=== PATIENT | female | born 1970 | race Caucasian/White ===

== ENCOUNTER 2022-11-12 09:23 | Outpatient (CLI) | payer OTHER, SELFPAY ==
[2022-11-12 12:03] LABS: Cholesterol* 243 mg/dL (90-199); Glucose* 83 mg/dL (60-115)
[2022-11-12 12:04] LABS: HDL Cholesterol* 95 mg/dL (>=50); LDL Cholesterol Calculated 138 mg/dL (<100); Triglycerides* 48 mg/dL (40-149)
== END 2022-11-12 09:24 | disposition home or self-care (01) ==
PROVIDERS: PCP Physician Assistant; Visit Provider Registered Nurse
DX: Z13.6 Encounter for screening for cardiovascular disorders (principal); Z13.1 Encounter for screening for diabetes mellitus
CPT/HCPCS: 80061; 82947

== ENCOUNTER 2024-03-09 20:25 | Outpatient (CLI) | payer OTHER, SELFPAY ==
--- NOTE | 2024-03-09 20:30 | MR_ITS ---
[address] [address] Phone:?[phone] Fax:?[phone] Referring Physician Information: Ethan Mota M.D. [address] [facility] [address] Phone:?[phone] Fax:?[phone] Patient:Rosemary Joseph D.O.B:?1970 Sex:?Female Phone:?[phone] [facility] MRN:?[id number] Exam Date:?03/09/2024 EXAM: MRI OF THE LEFT KNEE CLINICAL INFORMATION: The patient is a 53-year-old with left knee pain. Evaluate for medial meniscal tear. Evaluate for stress injury. PRIOR SURGERY: None reported. COMPARISON STUDIES: Comparison is made to prior radiographs dated 03/06/2024. TECHNICAL INFORMATION: Imaging was performed on a high-field, 1.5 Jacquie MR scanner. Axial proton-density and fat-suppressed T2 imaging of the left knee was performed in addition to sagittal proton-density and fat-suppressed proton- density imaging. Coronal proton-density and coronal STIR imaging was also produced. FINDINGS: Articular/Extraarticular collections: Effusion: Mild to moderate. Popliteal cyst: Small, seen on sagittal series 6 image 8. Loose bodies: No well-defined intra-articular loose bodies are present. Subcutaneous and extraarticular soft tissues: Nonspecific subcutaneous soft tissue edema and/or hemorrhage can be seen along the anterior and medial aspects of the left knee. Osseous structures: Moderate marrow edema can be seen involving the central and posterior aspects of the medial femoral condyle with an area of subcortical low signal intensity along the posterior weightbearing surfaces seen on sagittal series 6 image 9 and on coronal series 8 image 20. The low signal intensity along the articular surfaces measures approximately 12 mm in anteroposterior dimension and 11 mm in mediolateral dimension. The findings are in keeping with a subcortical fracture. The findings are in keeping with a traumatic or stress injury of the medial femoral condyle. No other bony abnormalities about the knee are seen. Ligamentous structures: ACL: Intact and normal in appearance. PCL: Intact and normal in appearance. MCL: Intact and normal in appearance. LCL: Intact and normal in appearance. Posterolateral corner: Intact and normal in appearance. Posteromedial corner: No posteromedial corner soft tissue injury. Semimembranosus and pes anserine tendons demonstrate no tendinopathy or associated bursitis. Extensor mechanism/Patellar retinacular structures: Patellar tendon: Intact, without tendinopathy. Quadriceps tendon: Intact, without tendinopathy. Retinacula: The medial and lateral retinacula are intact. The medial patellofemoral ligament is intact. Medial compartment: Medial meniscus: Degeneration and fraying of the posterior horn of the medial meniscus can be seen without definite areas of well-defined tearing. The middle and anterior portions of the medial meniscus appear intact. No parameniscal cyst formation is identified. Medial femoral condyle: No chondromalacia, chondral defect, or osteochondral abnormality. Medial tibial plateau: No chondromalacia, chondral defect, or osteochondral abnormality. Lateral compartment: Lateral meniscus: No evidence for lateral meniscal tearing is present. No evidence for parameniscal cyst formation can be seen. Lateral femoral condyle: No chondromalacia, chondral defect, or osteochondral abnormality. Lateral tibial plateau: No chondromalacia, chondral defect, or osteochondral abnormality. Patellofemoral compartment: Patella: Grade II to III chondromalacia can be seen involving the patellar apex and medial patellar facet on axial series 3 image 10, measuring 21 mm in mediolateral dimension. Additional grade II chondromalacia of the lateral patellar facet can be seen. Trochlea: No chondromalacia, chondral defect, or osteochondral abnormality. Neurovascular: No definite neurovascular abnormalities are seen. CONCLUSION: 1. Traumatic versus stress injury of the medial femoral condyle with marrow edema and subcortical fracture. 2. Degeneration of the medial meniscus without definite areas of well-defined medial or lateral meniscal tearing. 3. Chondromalacia of the patella. 4. The cruciate and collateral ligaments appear intact. 5. Mild to moderate knee joint effusion and small popliteal cyst. [facility] Electronically signed on 03/10/2024 8:40:00 AM by Ramesh Tripp M.D.
== END 2024-03-09 20:26 | disposition home or self-care (01) ==
PROVIDERS: Visit Provider Orthopaedic Surgery
DX: M25.562 Pain in left knee (principal); M22.42 Chondromalacia patellae, left knee; M25.462 Effusion, left knee; M71.22 Synovial cyst of popliteal space [Baker], left knee
CPT/HCPCS: 73721

== ENCOUNTER 2024-06-02 08:15 | Outpatient (RCR) | payer OTHER, SELFPAY | END 2024-08-30 10:25 | disposition home or self-care (01) | PROVIDERS: Visit Provider Orthopaedic Surgery | DX: M84.352 Stress fracture, left femur (principal); M25.562 Pain in left knee; Z74.09 Other reduced mobility; R26.9 Unspecified abnormalities of gait and mobility; M62.81 Muscle weakness (generalized); Z51.89 Encounter for other specified aftercare | CPT/HCPCS: 97110; 97116; 97140; 97161 ==

== ENCOUNTER 2024-06-15 20:20 | Outpatient (CLI) | payer OTHER, SELFPAY ==
--- NOTE | 2024-06-15 20:30 | MR_ITS ---
[address] [address] Phone:?[phone] Fax:?[phone] Referring Physician Information: Ethan Mota M.D. [address] [facility] [address] Phone:?[phone] Fax:?[phone] Patient:Rosemary Joseph D.O.B:?1970 Sex:?Female Phone:?[phone] [facility] MRN:?[id number] Exam Date:?06/15/2024 EXAM: MRI of the LEFT KNEE, without contrast CLINICAL: Left knee stress fracture. Compare to prior MRI. COMPARISONS: MRI 03/09/2024. TECHNICAL: Multiplanar multisequence MRI of the left knee was obtained. SEDATION: None. CONTRAST: None. FINDINGS: Ligaments: ACL: Intact and unremarkable. PCL: Intact and unremarkable. MCL: Intact and unremarkable. LCL: Intact and unremarkable. Posterolateral corner: There is increased soft tissue edema about the distal iliotibial band. Popliteus tendon, biceps femoris, iliotibial band, and the popliteofibular ligament appear intact. Posteromedial corner: Semimembranosus, pes anserine tendons and posterior oblique ligament appear intact. Extensor mechanism: Patellar tendon: Intact, without tendinopathy. Quadriceps tendon: Intact, without tendinopathy. Retinacula: Medial and lateral retinacula are intact. Fat pads: Unremarkable infrapatellar Hoffa's, quadriceps and prefemoral fat pads. Patellofemoral joint: Patella: Chondral loss involving the medial patellar facet is similar to prior examination. Chondral heterogeneity and fissuring involving the lateral facet similar to prior exam. Trochlea: No new chondral defects. Medial compartment: Medial meniscus: No evidence of discrete meniscal tear or meniscal displacement. Medial cartilage: No significant chondromalacia. Lateral compartment: Lateral meniscus: No evidence of discrete meniscal tear or meniscal displacement. Lateral cartilage: No new chondral defects. Knee joint: Effusion: Small left knee effusion. Intra-articular bodies:?No convincing bodies identified. Popliteal cyst: Very small. Bones: Small residual subchondral fracture involves the weightbearing medial femoral condyle adjacent to the posterior horn medial meniscus as seen on prior examination. The previously identified bone marrow edema involving the medial femoral condyle adjacent to the subchondral fracture is decreased compared to prior examination with some residual bone marrow edema noted. No new osseous fracture identified. There is some apparent marrow heterogeneity of the distal femur and patella suggesting osteopenia. IMPRESSION: 1. Small residual subchondral fracture involving the weightbearing medial femoral condyle as seen on prior examination, with interval decrease of the previously identified adjacent bone marrow edema. No new fracture identified. 2. Chondromalacia involving the patella similar to prior examination. 3. Small joint effusion and very small popliteal cyst. 4. No evidence of meniscal tear or ligamentous injury. Z Electronically signed on 06/16/2024 8:47:00 AM by Merlin Salazar D.O.
== END 2024-06-15 20:21 | disposition home or self-care (01) ==
LOC: MRI 20:20
PROVIDERS: Visit Provider Orthopaedic Surgery
DX: M84.352 Stress fracture, left femur (principal); M22.42 Chondromalacia patellae, left knee; M25.462 Effusion, left knee; M71.22 Synovial cyst of popliteal space [Baker], left knee
CPT/HCPCS: 73721

== ENCOUNTER 2024-08-23 15:24 | Outpatient (CLI) | payer OTHER, SELFPAY ==
[2024-08-26 02:29] LABS: HPV Source Cervical; HPV, High Risk by TMA Not Detected
[2024-09-07 16:46] LABS: Pap Test Reviewed by Path Done
== END 2024-08-23 15:25 | disposition home or self-care (01) ==
PROVIDERS: Visit Provider Obstetrics & Gynecology
DX: Z01.419 Encounter for gynecological examination (general) (routine) without abnormal findings (principal); N91.2 Amenorrhea, unspecified; E66.9 Obesity, unspecified; Z12.4 Encounter for screening for malignant neoplasm of cervix; M84.352 Stress fracture, left femur
CPT/HCPCS: 87624; 87625; 88141; 88142

== ENCOUNTER 2024-09-06 09:32 | Outpatient (CLI) | payer OTHER, SELFPAY ==
--- NOTE | 2024-09-06 11:27 | W.ANESCHARGE ---
Anesthesia Charges Start Date/Time Anesthesia Start Date: 09/06/24 Anesthesia Start Time: 10:45 Stop Date/Time Anesthesia Stop Date: 09/06/24 Anesthesia Stop Time: 11:20
--- NOTE | 2024-09-06 13:33 | W.ANESCHARGE ---
Anesthesia Charges Start Date/Time Anesthesia Start Date: 09/06/24 Anesthesia Start Time: 10:45 Stop Date/Time Anesthesia Stop Date: 09/06/24 Anesthesia Stop Time: 11:20
== END 2024-09-06 09:33 | disposition home or self-care (01) ==
PROVIDERS: Visit Provider Surgery
DX: Z12.11 Encounter for screening for malignant neoplasm of colon (principal)
CPT/HCPCS: 00811; 00812; 45378; J2704

== ENCOUNTER 2024-09-15 13:20 | Outpatient (CLI) | payer OTHER, SELFPAY | END 2024-09-15 13:21 | disposition home or self-care (01) | LOC: NFLDREF 09-20 06:47 | PROVIDERS: PCP Obstetrics & Gynecology; Visit Provider Obstetrics & Gynecology | DX: M84.352 Stress fracture, left femur (principal); Z00.00 Encounter for general adult medical examination without abnormal findings; N91.2 Amenorrhea, unspecified; E66.9 Obesity, unspecified; M85.89 Other specified disorders of bone density and structure, multiple sites | CPT/HCPCS: 80053; 80061; 82670; 83001; 84443 ==

== ENCOUNTER 2024-09-15 13:24 | Outpatient (CLI) | payer OTHER, SELFPAY ==
--- NOTE | 2024-09-15 14:00 | CRLHL7_ITS ---
For Patients: As a result of the Century Cures Act, medical imaging exams and procedure reports are released immediately into your electronic medical record. You may view this report before your referring provider. If you have questions, please contact your health care provider. DXA BONE MINERAL DENSITY STUDY Reason for exam: Stress fracture, left femur. Current height (in): 65. Weight (lb): 220. Menopause age: 51. Ethnicity: White. 1. Have you had a previous hip or vertebral fracture? No. 2. Have you had any fractures during your adult life which did not result from significant trauma (e.g., auto accident)? Yes. 3. Did either of your parents have a hip fracture? No. 4. Do you smoke? No. 5. Have you ever taken Glucocorticoids? No. 6. Do you have rheumatoid arthritis? No. 7. Do you have secondary osteoporosis? No. 8. Do you drink 3 or more alcoholic drinks per day? No. 9. Are you being treated for osteoporosis? No. 10. Have you ever taken any of the following medications: Actonel, Evista, Fosamax, Miacalcin, Reclast, Boniva, Forteo, HRT (i.e. estrogen/hormone therapy), Protelos, Prolia, Vitamin D, Calcium, other ??? please specify. ANSWER: Yes, vitamin D. 11. Do you have any of the following medical conditions: Anorexia or bulimia, asthma or emphysema, end stage renal disease, hyperparathyroidism, any seizure disorders, cancer, inflammatory bowel diseases, hysterectomy, other ??? please specify. ANSWER: No. 12. What was your maximum height (inches)? 65.5. 13. Do you perform weight bearing exercise regularly? Yes. 14. Do you regularly consume dairy products? Yes. 15. Do you drink caffeinated beverages? Yes. 16. At what age did your period start? 14. 17. Are you premenopausal? No. 18. How many full term pregnancies have you had? 3. 19. Have you ever missed your period for more than 6 months in a row (not including or menopause)? No. TECHNIQUE: Bone mineral density study was performed using the [employer]. FINDINGS: The results of the study expressed as bone mineral density (BMD) are as follows: Lumbar spine L1 to L4: BMD: 0.957 g/cm2. T-score: -0.8. Z-score: 0.2. Neck Left: BMD: 0.579 g/cm2. T-score: -2.4. Z-score: -1.4. Right: BMD: 0.711 g/cm2. T-score: -1.2. Z-score: -0.3. Total Left: BMD: 0.761 g/cm2. T-score: -1.5. Z-score: -0.9. Right: BMD: 0.918 g/cm2. T-score: -0.2. Z-score: 0.4. IMPRESSION: Osteopenia. *Comparison exams done prior to 03/2020 were performed on different unit, M-KOPA. FRAX 10-year Fracture Risk Major Osteoporotic Fracture: 13 percent Hip Fracture: 2.3 percent Reported Risk Factors: [place] () Neck BMD=0.579, BMI=36.1, previous fracture Silvia Cha M.D. Diagnostic Radiologist [email or web address] VERONICA/jakub SP/Dictated by: Silvia Cha MD @ 09/16/2024 9:00:00 AM (Electronically Signed)
== END 2024-09-15 13:25 | disposition home or self-care (01) ==
PROVIDERS: Visit Provider Obstetrics & Gynecology
DX: M84.352 Stress fracture, left femur (principal); M85.89 Other specified disorders of bone density and structure, multiple sites; N91.2 Amenorrhea, unspecified; E66.9 Obesity, unspecified
CPT/HCPCS: 77080

== ENCOUNTER 2024-10-28 10:43 | Outpatient (CLI) | payer OTHER, SELFPAY | END 2024-10-28 10:44 | disposition home or self-care (01) | LOC: LKVREF 10:43 | PROVIDERS: Visit Provider Obstetrics & Gynecology | DX: M85.80 Other specified disorders of bone density and structure, unspecified site (principal) | CPT/HCPCS: 82306 ==

== ENCOUNTER 2025-05-12 08:59 | Outpatient (CLI) | payer OTHER, SELFPAY ==
[2025-05-12 11:00] LABS: Iron* 84 ug/dL (37-170)
[2025-05-12 11:01] LABS: Cholesterol* 185 mg/dL (90-199); Glucose* 86 mg/dL (60-115); HDL Cholesterol* 68 mg/dL (>=50); Triglycerides* 43 mg/dL (40-149)
[2025-05-12 11:09] LABS: Percent Iron Saturation 30 % (20-50); Total Iron Binding Capacity 283 ug/dL (265-497)
[2025-05-12 11:15] LABS: Vitamin D 25 Hydroxy* 47 ng/mL (30-80)
[2025-05-12 11:21] LABS: Free T4 Free Thyroxine* 0.90 ng/dL (0.70-1.85)
[2025-05-12 11:51] LABS: Vitamin B12* 586 pg/mL (243-894)
[2025-05-13 13:08] LABS: TPO Antibody 0.4 IU/mL (0.0-9.0)
[2025-05-13 15:57] LABS: Estradiol Premenol Female 239 pg/mL; Folate, Serum 13.0 ng/mL (>=5.9)
[2025-05-14 05:34] LABS: Zinc, Serum/Plasma 78.4 ug/dL (60.0-120.0)
[2025-05-24 11:59] LABS: Testosterone, Free LC-MS/MS 2.4 pg/mL (0.6-3.8); Testosterone, LC-MS/MS 21 ng/dL (9-55)
== END 2025-05-12 09:00 | disposition home or self-care (01) ==
LOC: NPINS 09:00
PROVIDERS: Visit Provider Nurse Practitioner Women's Health
DX: L65.9 Nonscarring hair loss, unspecified (principal); M25.9 Joint disorder, unspecified; N95.1 Menopausal and female climacteric states
CPT/HCPCS: 80061; 82306; 82607; 82670; 82728; 82746; 82947; 83036; 83540; 83550; 84270; 84402; 84403; 84439; 84443; 84630; 86376; 86800